=== PATIENT | female | born 1980 | race Caucasian/White ===

== ENCOUNTER 2016-08-28 15:17 | Emergency (ER) | payer SELFPAY ==
[~2016-08-28] VITALS: Ht 165.1 cm; Wt 90.7 kg
[~2016-08-28 15:17] MED LIST: MIRENA IUD
--- NOTE | 2016-08-28 15:41 | ED Lower Extremity ---
General Stated Complaint: RT ANKLE LACERATION Source: patient Exam Limitations: no limitations History of Present Illness Time seen by provider: 15:39 Initial Comments To ER with a laceration to the medial malleolus right ankle. Tetanus is up-to- date. This occurred just prior to arrival when she was carrying a glass of apple juice bottle out of [employer]. The bottle fell out of the plastic bag that it was in an shattered. Piece of glass flew up and cut her leg. Onset: just prior to arrival Severity: mild Pain/Injury Location: right ankle Modifying Factors: Worse With Movement Allergies and Home Medications Allergies Coded Allergies: No Known Allergies (Verified Allergy, Unknown, 04/14/05) Home Medications [Mirena Iud] , (Reported) Constitutional: see HPI EENTM: see HPI Respiratory: no symptoms reported Cardiovascular: no symptoms reported Genitourinary: no symptoms reported Musculoskeletal: see HPI Skin: see HPI Psychiatric/Neurological: No Symptoms Reported Past Vysvdri-Yrctmf-Ozmwsp Hx Patient Social History Recent Foreign Travel: No Contact w/Someone Who Travel: No Respiratory Hx Respiratory Disorders: Yes Reproductive System Hx Reproductive Disorders: No (MIRENA IMPLANT, HX.CYSTIC EGGS) Gastrointestinal Hx Gastrointestinal Disorders: Yes Musculoskeletal Hx Musculoskeletal Disorders: No Endocrine Hx Endocrine Disorders: No HEENT HX ENT Disorders: No Psychosocial Hx Psychiatric Problems: Yes (DEPRESSION-LOST 1YR.OLD CHILD IN AUGUST) Blood Transfusions Hx Blood Disorders: No Physical Exam Vital Signs Vital Sign - Last 12Hours 08/28/16 15:30 Temp 98.0 Pulse 78 Resp 16 B/P (MAP) 161/99 Pulse Ox 98 Capillary Refill : General Appearance: WD/WN, no apparent distress HEENT: PERRL/EOMI, normal ENT inspection Neck: non-tender, full range of motion Respiratory: no respiratory distress, no accessory muscle use Gastrointestinal: normal bowel sounds, non tender, soft Hips: bilateral hip non-tender, bilateral hip normal inspection, bilateral hip normal range of motion Legs: bilateral leg non-tender, bilateral leg normal inspection, bilateral leg normal range of motion Knees: bilateral knee non-tender, bilateral knee normal inspection, bilateral knee normal range of motion Ankles: right ankle pain, right ankle other (1.5 cm laceration to the medial malleolus of the right ankle with active bleeding that is easily controlled with ) Neurologic/Psychiatric: normal mood/affect, oriented x 3 Skin: normal color, warm/dry Laceration Repair : Wound Location: Lower Extremities Wound's Depth, Shape: sub Q Anesthesia: 1% Lidocaine Suture: Prolene Suture Size: 4-0 Number of Sutures: 3 Layer Closure?: 1 Number Deep Layer Sutures: 0 Progress Area anesthetized with 2 mL 2 percent lidocaine without epinephrine. Wound is scrubbed with chlorhexidine/saline solution and irrigated with the same. I'm able to visualize ligament structures over the medial malleolus but no laceration of these. Subcutaneous tissues/skin closed with 3 simple interrupted sutures size 4-0 Prolene Progress/Results/Core Measures Results/Orders My Orders Orders - ANAYA BECKFORD APRN Lidocaine 2% Injection 20 Ml (Xylocaine (08/28/16 15:45) Medications Given in ED Current Medications Medications Dose Ordered Sig/Renata Route Start Time Stop Time Status Last Admin Dose Admin Lidocaine HCl 3 ml ONCE ONCE INJ 08/28/16 15:45 08/28/16 15:46 DC 08/28/16 15:55 3 ML Vital Signs/I&O Vital Sign - Last 12Hours 08/28/16 15:30 Temp 98.0 Pulse 78 Resp 16 B/P (MAP) 161/99 Pulse Ox 98 Departure Impression Impression: Primary Impression: Laceration Disposition: 01 HOME, SELF-CARE Condition: Stable Departure-Patient Inst. Decision time for Depature: 15:41 Referrals: NO,LOCAL PHYSICIAN (PCP/Family) Primary Care Physician Patient Instructions: Laceration Repair With Stitches (DC) Add. Discharge Instructions: 1. You may wash this gently with soap and water starting this evening. However , do not soak this in water such as a bathtub, swimming pool or hot tub until the stitches have been removed. Return to the emergency room to have these removed in 7-10 days. Return to ER before then for any sign of infection such as redness or swelling. Keep this covered with a simple Band-Aid. ANAYA BECKFORD APRN Aug 28, 2016 15:41
[2016-08-28] MEDS ORDERED: LIDOCAINE 2% 20 ML (XYLOCAINE) VIAL INJ ONE (15:45)
[2016-08-28 16:09] VITALS: BP 160/78
--- OUTSIDE RECORDS SUMMARY | 2016-08-29 08:57 | XMS REPORT | Continuity of Care Document ---
Author Author [facility] Organization [facility] Address Unknown Phone Unavailable Care Team Providers Care Chute Man Name Role Phone Doctor, Miscellaneous PCP Unavailable Source Comments Some departments are not documenting in the electronic medical record. If you do not see the information that you expected, contact Release of Information in the Health Information Management department at [phone] for further assistance in locating additional records.[facility] Active Allergies and Adverse Reactions No Known Allergies Current Medications Prescription Sig. Disp. Refills Start End Date Status Date ALPRAZolam (XANAX) 0.5 mg Take 0.5 mg by mouth Active tablet three times daily as needed. PHENAZOPYRIDINE HCL Take by mouth. Active (PYRIDIUM PO) HYDROcodone-acetaminophen Take 1 Tab by mouth every Active (+) (VICODIN ES) 7.5-750 6 hours as needed. mg tablet IBUPROFEN (ADVIL PO) Take by mouth. Active levofloxacin (LEVAQUIN) Take 1 Tab by mouth 5 Tab 0 11/08/19 Active 750 mg tablet daily. 14 oxyCODONE-acetaminophen Take 1 Tab by mouth every 8 Tab 0 11/08/19 Active (PERCOCET; ENDOCET; 4 hours as needed for 14 ROXICET) 5-325 mg tablet Pain Max 12 tabs/day ondansetron (ZOFRAN) 4 mg Take 1 Tab by mouth every 15 Tab 0 20 Active tablet 8 hours as needed for 14 Nausea. Active Problems Not on file Social History Tobacco Use Types Packs/Day Years Used Date Current Every Day Smoker Cigarettes 0.5 Alcohol Use Drinks/Week oz/Week Comments No Last Filed Vital Signs Vital Sign Reading Time Taken Blood Pressure 127/84 11/07/2013 1:22 AM CDT Pulse 62 11/07/2013 1:22 AM CDT Temperature 36.9 C (98.4 F) 11/06/2013 9:27 PM CDT Respiratory Rate - - Height - - Weight 95.9 kg (211 lb 6.7 oz) 11/06/2013 9:27 PM CDT Body Mass Index - - Oxygen Saturation 96% 11/07/2013 1:22 AM CDT Plan of Care Health Maintenance Due Date Last Done Comments Physical (Comprehensive) 1986 Exam Pertussis Vaccine 1990 Tetanus Vaccine 02/19/1996 Cervical Cancer Screening 02/19/2000 Influenza Vaccine 11/03/2016 Results from Last 3 Months Not on file
--- OUTSIDE RECORDS SUMMARY | 2016-08-29 08:58 | XMS REPORT | Continuity of Care Document ---
Author Author [facility] Address Unknown Phone Unavailable Allergies Medications Problems Date Dx Coded Attending Type Code Diagnosis Diagnosed By 11/02/2011 MAMI DDS JACOBY L V25.01 CONTRACEPTION - ORAL CONTRACEPTION 11/02/2011 GREEN DDS JACOBY L V25.12 IUD REMOVAL 11/02/2011 GREEN DDS JACOBY L V74.5 STD SCREEN 11/02/2011 MAMI DDS JACOBY L V76.2 CERVICAL CANCER SCREENING (PAP SMEAR) 11/02/2011 V25.01 CONTRACEPTION - ORAL CONTRACEPTION 11/02/2011 V25.12 IUD REMOVAL 11/02/2011 V74.5 STD SCREEN 11/02/2011 V76.2 CERVICAL CANCER SCREENING (PAP SMEAR) 11/02/2011 V25.01 CONTRACEPTION - ORAL CONTRACEPTION 11/02/2011 V25.12 IUD REMOVAL 11/02/2011 V74.5 STD SCREEN 11/02/2011 V76.2 CERVICAL CANCER SCREENING (PAP SMEAR) 11/02/2011 MARGARITO SWANN MD V25.01 CONTRACEPTION - ORAL CONTRACEPTION 11/02/2011 MARGARITO SWANN MD V25.12 IUD REMOVAL 11/02/2011 MARGARITO SWANN MD V74.5 STD SCREEN 11/02/2011 MARGARITO SWANN MD V76.2 CERVICAL CANCER SCREENING (PAP SMEAR) 11/02/2011 MARGARITO SWANN MD V25.01 CONTRACEPTION - ORAL CONTRACEPTION 11/02/2011 MARGARITO SWANN MD V25.12 IUD REMOVAL 11/02/2011 MARGARITO SWANN MD V74.5 STD SCREEN 11/02/2011 MARGARITO SWANN MD V76.2 CERVICAL CANCER SCREENING (PAP SMEAR) 11/02/2011 MARGARITO SWANN MD V25.01 CONTRACEPTION - ORAL CONTRACEPTION 11/02/2011 MARGARITO SWANN MD V25.12 IUD REMOVAL 11/02/2011 MARGARITO SWANN MD V74.5 STD SCREEN 11/02/2011 MARGARITO SWANN MD V76.2 CERVICAL CANCER SCREENING (PAP SMEAR) 07/05/2012 008.8 GASTROENTERITIS, VIRAL 07/05/2012 477.0 ALLERGIC RHINITIS DUE TO POLLEN 07/05/2012 008.8 GASTROENTERITIS, VIRAL 07/05/2012 477.0 ALLERGIC RHINITIS DUE TO POLLEN 07/05/2012 MARGARITO SWANN MD 008.8 GASTROENTERITIS, VIRAL 07/05/2012 MARGARITO SWANN MD 477.0 ALLERGIC RHINITIS DUE TO POLLEN 07/05/2012 MARGARITO SWANN MD 008.8 GASTROENTERITIS, VIRAL 07/05/2012 MARGARITO SWANN MD 477.0 ALLERGIC RHINITIS DUE TO POLLEN 07/05/2012 MARGARITO SWANN MD 008.8 GASTROENTERITIS, VIRAL 07/05/2012 MARGARITO SWANN MD 477.0 ALLERGIC RHINITIS DUE TO POLLEN 07/08/2012 465.9 UPPER RESPIRATORY INFECTION 07/08/2012 MARGARITO SWANN MD 465.9 UPPER RESPIRATORY INFECTION 07/08/2012 MARGARITO SWANN MD 465.9 UPPER RESPIRATORY INFECTION 07/08/2012 MARGARITO SWANN MD 465.9 UPPER RESPIRATORY INFECTION 12/18/2012 MARGARITO SWANN MD 466.0 BRONCHITIS, ACUTE 12/18/2012 MARGARITO SWANN MD 466.0 BRONCHITIS, ACUTE 12/18/2012 MARGARITO SWANN MD 466.0 BRONCHITIS, ACUTE 09/30/2013 MARGARITO SWANN MD 451.9 PHLEBITIS AND THROMBOPHLEBITIS OF UNSPECIFIED SITE 09/30/2013 MARGARITO SWANN MD 591 HYDRONEPHROSIS 09/30/2013 MARGARITO SWANN MD 788.41 URINARY FREQUENCY 09/30/2013 MARGARITO SWANN MD 796.2 ELEVATED BLOOD PRESSURE READING WITHOUT DIAGNOSIS OF HYPERTENSION 09/30/2013 MARGARITO SWANN MD 451.9 PHLEBITIS AND THROMBOPHLEBITIS OF UNSPECIFIED SITE 09/30/2013 MARGARITO SWANN MD 591 HYDRONEPHROSIS 09/30/2013 MARGARITO SWANN MD 788.41 URINARY FREQUENCY 09/30/2013 MARGARITO SWANN MD 796.2 ELEVATED BLOOD PRESSURE READING WITHOUT DIAGNOSIS OF HYPERTENSION Procedures Code [place] [address] ROUTINE VENIPUNCTURE 07/08/2012 29809 CMP 07/08/2012 53255 CBC 07/08/2012 62859 CULTURE STOOL 08/2012 47151 STOOL FOR O & P 07/08/2012 80815 OXIMETRY 2012 27773 UA LONG DIP 09/30 55927 OXIMETRY 2013 Results Encounters ACCT No. Visit Date/Time Discharge Status Pt. Type Provider Facility Loc./Unit Complaint [id number] 10/02/2013 10:05:00 10/02/2013 23: 59:59 CLS Outpatient MARGARITO SWANN MD [id number] 09/30/2013 10:04:00 09/30/2013 23: 59:59 CLS Outpatient MARGARIOT SWANN MD [id number] 12/18/2012 08:50:00 12/18/2012 23: 59:59 CLS Outpatient MARGARITO SWANN MD [id number] 02/15/2012 15:46:00 02/15/2012 23: 59:59 CLS Outpatient JACOBY BOLAÑOS DDS [id number] 07/08/2012 14:54:00 Document Registration [id number] 07/05/2012 13:41:00 Document Registration
== END 2016-08-28 16:09 | disposition home or self-care (01) ==
LOC: EDUNIT# 15:17 → ER 15:22
DX: S91.011A Laceration without foreign body, right ankle, initial encounter (principal); F32.9 Major depressive disorder, single episode, unspecified; W25.XXXA Contact with sharp glass, initial encounter; Y92.59 Other trade areas as the place of occurrence of the external cause
CPT/HCPCS: 12041

== ENCOUNTER 2017-09-08 08:49 | Emergency (ER) | payer SELFPAY ==
[~2017-09-08] VITALS: Ht 165.1 cm; Wt 108.9 kg
[2017-09-08] MEDS ORDERED: LACTATED RINGERS 1,000 ML IV ONE (09:04)
--- NOTE | 2017-09-08 09:12 | ED Abdominal Pain ---
General Stated Complaint: ABD PAIN,NAUSEA,FEVER Source of Information: Patient Exam Limitations: No Limitations History of Present Illness Date Seen by Provider: Sep 08, 2017 Time Seen by Provider: 08:59 Initial Comments Patient presents to the ER by private conveyance with a chief complaint she's having some left lower quadrant sharp abdominal pain started about 3 or 4 days ago. She's having no dysuria or discharge. 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 Says this pain is different. Yesterday she thought that it might of been a urinary tract infection although doesn't feel like her typical urinary tract infection so she took a tablet of her azithromycin that she had left over at home. She says it did not help her pain. She's having some nausea but no vomiting. She's had a couple small bowel movements. No colonoscopy or history of diverticulosis. She' s not having any blood in the stool. Allergies and Home Medications Allergies Coded Allergies: No Known Allergies (Verified Allergy, Unknown, 04/14/05) Patient Home Medication List Home Medication List Reviewed: Yes Review of Systems Constitutional: No chills, No diaphoresis, No fever EENTM: No Blurred Vision, No Double Vision Respiratory: Denies Cough, Denies Shortness of Air Cardiovascular: Denies Chest Pain, Denies Irregular Heart Rate Gastrointestinal: Denies Abdomen Distended; Abdominal Pain; Denies Blood Streaked Stools, Denies Constipated, Denies Diarrhea; Nausea Genitourinary: Denies Burning, Denies Discharge, Denies Drainage Musculoskeletal: No back pain, No joint pain Skin: No pruritus, No rash Psychiatric/Neurological: Denies Headache, Denies Numbness, Denies Paresthesia Past Misjcnq-Qysjrt-Eacebv Hx Patient Social History Alcohol Use: Occasionally Uses Recreational Drug Use: No Smoking Status: Current Everyday Smoker Type Used: Cigarettes (0.25 ppd) Recent Foreign Travel: No Contact w/Someone Who Travel: No Recent Hopitalizations: Yes (CHILDBIRTH,CYSTIC OVARY,PREECLAMPSIA) Immunizations Up To Date Tetanus Booster (TDap): Less than 5yrs Past Medical History Surgeries: Yes (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) Respiratory: Yes Reproductive Disorders: No (MIRENA IMPLANT, HX.CYSTIC EGGS) Gastrointestinal: Yes Musculoskeletal: No Endocrine: No Psychosocial: Yes (DEPRESSION-LOST 1YR.OLD CHILD IN AUGUST) Blood Disorders: No Physical Exam Vital Signs Vital Signs - First Documented 09/08/17 08:57 Temp 97.1 Pulse 97 Resp 18 B/P (MAP) 142/82 (102) Capillary Refill : Height/Weight/BMI Height: 5', 5.00" Weight: 200lbs oz, 90.374486cn Method:Stated ,BMI General Appearance: WD/WN, mild distress HEENT: PERRL/EOMI, pharynx normal Neck: non-tender, full range of motion, supple, normal inspection Respiratory: chest non-tender, lungs clear, normal breath sounds, no respiratory distress, no accessory muscle use Cardiovascular: normal peripheral pulses, regular rate, rhythm, no edema Peripheral Pulses: 2+ Radial Pulses (R), 2+ Radial Pulses (L) Gastrointestinal: soft, guarding, rebound, tenderness (LLQ); No hernia, No mass Extremities: normal range of motion, non-tender, no calf tenderness, normal capillary refill Neurologic/Psychiatric: alert, normal mood/affect, oriented x 3 Skin: normal color, warm/dry Procedures/Interventions Suture Size: 4-0 Progress/Results/Core Measures Results/Orders Lab Results Laboratory Tests Test 09/08/17 09:10 Range/Units White Blood Count 12.0 H 4.3-11.0 10^3/uL Red Blood Count 4.59 4.35-5.85 10^6/uL Hemoglobin 14.5 11.5-16.0 G/DL Hematocrit 42 35-52 % Mean Corpuscular Volume 90 80-99 FL Mean Corpuscular Hemoglobin 32 25-34 PG Mean Corpuscular Hemoglobin Concent 35 32-36 G/DL Red Cell Distribution Width 13.4 10.0-14.5 % Platelet Count 249 130-400 10^3/uL Mean Platelet Volume 9.5 7.4-10.4 FL Neutrophils (%) (Auto) 79 H 42-75 % Lymphocytes (%) (Auto) 10 L 12-44 % Monocytes (%) (Auto) 8 0-12 % Eosinophils (%) (Auto) 2 0-10 % Basophils (%) (Auto) 0 0-10 % Neutrophils # (Auto) 9.5 H 1.8-7.8 X 10^3 Lymphocytes # (Auto) 1.2 1.0-4.0 X 10^3 Monocytes # (Auto) 1.0 0.0-1.0 X 10^3 Eosinophils # (Auto) 0.3 0.0-0.3 10^3/uL Basophils # (Auto) 0.0 0.0-0.1 10^3/uL Urine Color YELLOW Urine Clarity VERY CLOUDY H Urine pH 8 5-9 Urine Specific Webster 1.010 L 1.016-1.022 Urine Protein 2+ H NEGATIVE Urine Glucose (UA) NEGATIVE NEGATIVE Urine Ketones NEGATIVE NEGATIVE Urine Nitrite NEGATIVE NEGATIVE Urine Bilirubin NEGATIVE NEGATIVE Urine Urobilinogen 1 NORMAL MG/DL Urine Leukocyte Esterase 3+ H NEGATIVE Urine RBC (Auto) 1+ H NEGATIVE Urine RBC 2-5 H /HPF Urine WBC 50-100 H /HPF Urine Squamous Epithelial Cells 2-5 /HPF Urine Crystals NONE /LPF Urine Bacteria TRACE /HPF Urine Casts NONE /LPF Urine Mucus NEGATIVE /LPF Urine Culture Indicated YES Sodium Level 139 135-145 MMOL/L Potassium Level 4.0 3.6-5.0 MMOL/L Chloride Level 105 98-107 MMOL/L Carbon Dioxide Level 24 21-32 MMOL/L Anion Gap 10 5-14 MMOL/L Blood Urea Nitrogen 7 7-18 MG/DL Creatinine 0.77 0.60-1.30 MG/DL Estimat Glomerular Filtration Rate > 60 BUN/Creatinine Ratio 9 Glucose Level 119 H 70-105 MG/DL Calcium Level 9.2 8.5-10.1 MG/DL Total Bilirubin 1.6 H 0.1-1.0 MG/DL Aspartate Amino Transf (AST/SGOT) 19 5-34 U/L Alanine Aminotransferase (ALT/SGPT) 14 0-55 U/L Alkaline Phosphatase 82 40-136 U/L Total Protein 6.9 6.4-8.2 GM/DL Albumin 4.0 3.2-4.5 GM/DL Serum Test, Qualitative NEGATIVE NEGATIVE My Orders Orders - CHRIS ZALDIVAR Cbc With Automated Diff (09/08/17 09:04) Comprehensive Metabolic Panel (09/08/17 09:04) Hcg,Qualitative Serum (09/08/17 09:04) Ua Culture If Indicated (09/08/17 09:04) Ct Abdomen/Pelvis W (09/08/17 09:04) Saline Lock/Iv-Start (09/08/17 09:04) Lactated Ringers (Lr 1000 Ml Iv Solution (09/08/17 09:04) Ketorolac Injection (Toradol Injection) (09/08/17 09:15) Ondansetron Injection (Zofran Injectio (09/08/17 09:15) Iohexol Injection (Omnipaque 350 Mg/Ml 1 (09/08/17 09:15) Sodium Chloride Flush (Catheter Flush Sy (09/08/17 09:15) Ns (Ivpb) (Sodium Chloride 0.9%) (09/08/17 09:15) Pharmacy Communication (Pharmacy Communi (09/08/17 09:12) Urine Culture (09/08/17 09:10) Ceftriaxone Injection (Rocephin Injectio (09/08/17 11:00) Medications Given in ED Current Medications Medications Dose Ordered Sig/Renata Route Start Time Stop Time Status Last Admin Dose Admin Iohexol 100 ml ONCE ONCE IV 09/08/17 09:15 09/08/17 09:16 DC 09/08/17 09:48 100 ML Ketorolac Tromethamine 15 mg ONCE ONCE IVP 09/08/17 09:15 09/08/17 09:16 DC 09/08/17 09:17 15 MG Lactated Ringer's 1,000 ml @ 0 mls/hr Q0M ONCE IV 09/08/17 09:04 09/08/17 09:09 DC 09/08/17 09:17 1,000 MLS/HR Ondansetron HCl 4 mg ONCE ONCE IVP 09/08/17 09:15 09/08/17 09:16 DC 09/08/17 09:19 4 MG Sodium Chloride 10 ml NEEDED PRN IV 09/08/17 09:15 09/08/17 09:48 10 ML Sodium Chloride 250 ml ONCE ONCE IV 09/08/17 09:15 09/08/17 09:16 DC 09/08/17 09:48 80 ML Vital Signs/I&O 09/08/17 08:57 Temp 97.1 Pulse 97 Resp 18 B/P (MAP) 142/82 (102) Progress Progress Note #1: Time: 09:11 Progress Note Rheumatoid get a CT scan of the abdomen pelvis with contrast and basic labs and urinalysis. She's having quite a bit of tenderness in her left lower quadrant abdomen so we'll give her some ketorolac to start as well as Zofran and a liter of LR. Progress Note #2: Time: 10:47 Progress Note A long discussion with the patient and based on history and findings and urinalysis this is most likely pyelonephritis with local inflammation seen in the colon and a background history of diverticulosis without diverticulitis. We' ll going to treat her with Rocephin outpatient after offering her a observation stay for antibiotics and fluids. She says her pain is much improved on the Toradol but is starting to come back distal little. She is not having any nausea presently. She would like to go outpatient for her therapy. We'll put her on Keflex as well as some pain and nausea medicines. She does not have a primary care doctor but she says she's going to follow up at [facility] so we'll send her records there. Given her history of congenital portion of the ureter as well as a contrasted CT unable to rule out a stone it would be hceatham to follow-up with urology. She has a urologist that she saw in the past in [place] or she can follow-up locally. We discussed the incidental Earnestine in her lungs and recommended CT reimaging in the next 3-6 months set up by primary care and she says she will get this done. We had a 5-10 minute conversation on smoking cessation and made recommendations. Diagnostic Imaging Diagonstic Imaging: CT Plain Films/CT/US/NM/MRI: abdomen, pelvis Comments VIA [facility], [facility] [place], [place] NAME: ALTON SWEENEY [facility] REC#: [id number] PT STATUS: REG ER : 1980 PHYSICIAN: CHRIS ZALDIVAR MD ADMIT DATE: 09/08/17/ER Draft Date of Exam:09/08/17 CT ABDOMEN/PELVIS W PROCEDURE: CT abdomen and pelvis with contrast. TECHNIQUE: Multiple contiguous axial images were obtained through the abdomen and pelvis after administration of intravenous contrast. INDICATION: Left lower quadrant pain for 4 days, worse in the last 24 hours. EXAMINATION is a CT abdomen and pelvis with contrast 09/08/2017 COMPARISON: None. FINDINGS: The cortex of the left kidney is somewhat thinned compared to the right, likely due to a chronic process. There is left-sided hydronephrosis which appears severe. The left renal pelvis is prominent. The proximal left ureter (per history) has undergone prior surgery. Much of its course is difficult to visualize. There is marked fat stranding and likely fluid along the expected course of the ureter. No definite stones identified although a tiny stone could be missed given the presence of IV contrast. There is a small amount of free fluid in the left flank extending downwards towards the pelvis and surrounding the course of the distal psoas muscle. There is no definite nephrolithiasis on the left. However, there are small hypodensities less than a centimeter in size, too small to characterize. The right kidney is unremarkable, no lesions identified. No definite stones and no hydronephrosis. No ureteral stones noted along the course of the right ureter. There is some fat stranding about the descending colon with adjacent diverticular disease noted. Although some of this could be due to a focal acute diverticulitis, it may represent surrounding edema and fat stranding secondary to an abnormality in the left kidney. There is some wall thickening along the distal descending and proximal sigmoid colon which would suggest the primary etiology is acute diverticulitis. Please correlate with history and symptoms. The liver demonstrates diffuse fat infiltration. The spleen is unremarkable. The adrenal glands and pancreas are normal in appearance. The gallbladder is somewhat contracted, otherwise unremarkable. Adrenal glands, unremarkable. There is no lymphadenopathy. No free air. No abscess formation appreciated. The appendix is normal. Osseous structures demonstrate no acute abnormality. There is a peripherally enhancing lesion in the left adnexa most likely an involuting corpus luteal cyst. This measures approximately 16 mm in greatest dimension. Osseous structures within normal limits. Within the visualized lung bases, several nodules are noted, many of which are incompletely imaged. There is a 6 mm nodule in the periphery of the right lower lobe, image #1 (incompletely Imaged). A small nodule, subpleural in nature, in the left lower lobe is also seen and measures approximately 2 mm in size. There is an airspace opacity in the posterior right lung base which is approximately 12 mm in size. Multiple tiny nodules scattered throughout the left lower lobe. These findings are of uncertain etiology. Within the visualized left inferior breast there is a focal density which is likely fibroglandular tissue, less likely a lesion, but incompletely imaged. Clinical correlation recommended. IMPRESSION: 1. Fat stranding along the left flank and surrounding focal area of wall thickening and diverticular disease suspicious for acute diverticulitis. Adjacent free fluid noted but no free air or abscess at this time. 2. Fat stranding surrounding the expected course of the left ureter. This is very likely due to the suspected diverticulitis, less likely due to a recently passed stone or an acute process involving the left renal collecting system such as pyelonephritis. However, correlation clinically with symptoms and urinalysis may be warranted. No ureteral stones appreciated. 3. Involuting corpus luteal cyst is suspected in the left adnexal region. 4. Nodules within the visualized lungs, the largest of which is seen posterior at the right lung base and may contain a tiny central cavitation. Short-term interval followup to assure resolution and evaluate the remaining lungs would be recommended and to exclude a metastatic process. 5. Other incidental findings, as described above. 6. Hydronephrosis and cortical thinning of the left kidney appears chronic. Dictated on workstation # [id number] Dict: 09/08/17 [id number] Trans: 09/08/17 1019 [facility] [id number] Interpreted by: EDISON HILL MD Electronically signed by: Reviewed: Reviewed by Me Departure Impression Primary Impression: Pyelonephritis Additional Impressions: Tobacco dependence Pulmonary nodule seen on imaging study Disposition: 01 HOME, SELF-CARE Condition: Improved Departure-Patient Inst. Decision time for Depature: 10:45 Referrals: [facility] (PCP) Primary Care Physician FLAKITO ALEX MD Patient Instructions: Urinary Tract Infection, Adult (DC) Add. Discharge Instructions: Drink lots of fluids. Caffeine is okay. Take the antibiotics starting tomorrow one capsule twice a day for the next 10 days. You can use the Zofran, nausea medicine every 6 hours as needed and you can use the hydrocodone one tablet every 6 hours if ibuprofen 800 mg every 8 hours is not working. Call urology and get an appointment to follow up in the next week. Establish care with a primary care provider to help you manage your pyelonephritis as well as your incidentally noticed lung nodules which will require CT reimaging in 4-6 months. If you're unable to tolerate the pills or you're not seeing improvement in the first 3-4 days then you should follow-up sooner. Scripts Ondansetron (Ondansetron Odt) 4 Mg Tab.rapdis 4 MG PO Q6H PRN for NAUSEA/VOMITING, #8 TAB 0 Refills Prov: CHRIS ZALDIVAR 09/08/17 Hydrocodone Bit/Acetaminophen (Hydrocodone/Acetaminophen 5/325mg Tablet) 1 Tab Tab 1-2 EACH PO Q6H PRN for BREAKTHROUGH PAIN, #15 TAB 0 Refills Prov: CHRIS ZALDIVAR 09/08/17 Cephalexin (Keflex) 500 Mg Capsule 500 MG PO BID for 10 Days, #20 CAP 0 Refills Prov: CHRIS ZALDIVAR 09/08/17 Copy Copies To 1: PREMA CAR DO Copies To 2: FLAKITO ALEX MD, TITUS J Sep 08, 2017 09:12
[2017-09-08] MEDS ORDERED: KETOROLAC 30 MG/ML VIAL IVP ONE (09:15)
[2017-09-08] MEDS ORDERED: NS 250 ML (IVPB) BAG IV ONE (09:15)
[2017-09-08] MEDS ORDERED: CATHETER FLUSH 10 ML SYR IV PRN (09:15)
[2017-09-08] MEDS ORDERED: IOHEXOL 350 MG/ML 100 ML (OMNIPAQUE 350) VIAL IV ONE (09:15)
[2017-09-08] MEDS ORDERED: ONDANSETRON 4 MG/2 ML (SDV) Z0FRAN IVP ONE (09:15)
[2017-09-08 09:20] LABS: BASOPHILS % (AUTO) 0 % (0-10); EOSINOPHILS # (AUTO) 0.3 10^3/uL (0.0-0.3); EOSINOPHILS % (AUTO) 2 % (0-10); HEMATOCRIT 42 % (35-52); HEMOGLOBIN 14.5 G/DL (11.5-16.0); LYMPHOCYTES # (AUTO) 1.2 X 10^3 (1.0-4.0); LYMPHOCYTES % (AUTO) 10 % (12-44); MEAN CORPUSCULAR HEMOGLOBIN 32 PG (25-34); MEAN CORPUSCULAR HGB CONC 35 G/DL (32-36); MEAN CORPUSCULAR VOLUME 90 FL (80-99); MEAN PLATELET VOLUME 9.5 FL (7.4-10.4); MONOCYTES % (AUTO) 8 % (0-12); NEUTROPHILS # (AUTO) 9.5 X 10^3 (1.8-7.8); NEUTROPHILS % (AUTO) 79 % (42-75); PLATELET COUNT 249 10^3/uL (130-400); RED BLOOD COUNT 4.59 10^6/uL (4.35-5.85); RED CELL DISTRIBUTION WIDTH 13.4 % (10.0-14.5)
[2017-09-08 09:22] LABS: BILIRUBIN,URINE NEGATIVE (NEGATIVE); CLARITY,URINE VERY CLOUDY; COLOR,URINE YELLOW; GLUCOSE, URINE (UA) NEGATIVE (NEGATIVE); KETONES,URINE NEGATIVE (NEGATIVE); LEUKOCYTE ESTERASE ,URINE 3+ (NEGATIVE); NITRITE,URINE NEGATIVE (NEGATIVE); PH,URINE 8 (5-9); PROTEIN,URINE 2+ (NEGATIVE); UROBILINOGEN,URINE 1 MG/DL (NORMAL)
[2017-09-08 09:32] LABS: BACTERIA,URINE TRACE /HPF; WBC,URINE 50-100 /HPF
[2017-09-08 09:39] LABS: ALANINE AMINOTRANSFERASE 14 U/L (0-55); ALKALINE PHOSPHATASE 82 U/L (40-136); BILIRUBIN,TOTAL 1.6 MG/DL (0.1-1.0); BUN/CREATININE RATIO 9; CALCIUM 9.2 MG/DL (8.5-10.1); CARBON DIOXIDE 24 MMOL/L (21-32); CHLORIDE 105 MMOL/L (98-107); CREATININE SERUM 0.77 MG/DL (0.60-1.30); GFR ESTIMATED > 60; GLUCOSE 119 MG/DL (70-105); SODIUM 139 MMOL/L (135-145); TOTAL PROTEIN 6.9 GM/DL (6.4-8.2)
--- NOTE | 2017-09-08 10:19 | Diagnostic Imaging Report ---
PROCEDURE: CT abdomen and pelvis with contrast. TECHNIQUE: Multiple contiguous axial images were obtained through the abdomen and pelvis after administration of intravenous contrast. INDICATION: Left lower quadrant pain for 4 days, worse in the last 24 hours. EXAMINATION is a CT abdomen and pelvis with contrast 09/08/2017 COMPARISON: None. FINDINGS: The cortex of the left kidney is somewhat thinned compared to the right, likely due to a chronic process. There is left-sided hydronephrosis which appears severe. The left renal pelvis is prominent. The proximal left ureter (per history) has undergone prior surgery. Much of its course is difficult to visualize. There is marked fat stranding and likely fluid along the expected course of the ureter. No definite stones identified although a tiny stone could be missed given the presence of IV contrast. There is a small amount of free fluid in the left flank extending downwards towards the pelvis and surrounding the course of the distal psoas muscle. There is no definite nephrolithiasis on the left. However, there are small hypodensities less than a centimeter in size, too small to characterize. The right kidney is unremarkable, no lesions identified. No definite stones and no hydronephrosis. No ureteral stones noted along the course of the right ureter. There is some fat stranding about the descending colon with adjacent diverticular disease noted. Although some of this could be due to a focal acute diverticulitis, it may represent surrounding edema and fat stranding secondary to an abnormality in the left kidney. There is some wall thickening along the distal descending and proximal sigmoid colon which would suggest the primary etiology is acute diverticulitis. Please correlate with history and symptoms. The liver demonstrates diffuse fat infiltration. The spleen is unremarkable. The adrenal glands and pancreas are normal in appearance. The gallbladder is somewhat contracted, otherwise unremarkable. Adrenal glands, unremarkable. There is no lymphadenopathy. No free air. No abscess formation appreciated. The appendix is normal. Osseous structures demonstrate no acute abnormality. There is a peripherally enhancing lesion in the left adnexa most likely an involuting corpus luteal cyst. This measures approximately 16 mm in greatest dimension. Osseous structures within normal limits. Within the visualized lung bases, several nodules are noted, many of which are incompletely imaged. There is a 6 mm nodule in the periphery of the right lower lobe, image #1 (incompletely Imaged). A small nodule, subpleural in nature, in the left lower lobe is also seen and measures approximately 2 mm in size. There is an airspace opacity in the posterior right lung base which is approximately 12 mm in size. Multiple tiny nodules scattered throughout the left lower lobe. These findings are of uncertain etiology. Within the visualized left inferior breast there is a focal density which is likely fibroglandular tissue, less likely a lesion, but incompletely imaged. Clinical correlation recommended. IMPRESSION: 1. Fat stranding along the left flank and surrounding focal area of wall thickening and diverticular disease suspicious for acute diverticulitis. Adjacent free fluid noted but no free air or abscess at this time. 2. Fat stranding surrounding the expected course of the left ureter. This is very likely due to the suspected diverticulitis, less likely due to a recently passed stone or an acute process involving the left renal collecting system such as pyelonephritis. However, correlation clinically with symptoms and urinalysis may be warranted. No ureteral stones appreciated. 3. Involuting corpus luteal cyst is suspected in the left adnexal region. 4. Nodules within the visualized lungs, the largest of which is seen posterior at the right lung base and may contain a tiny central cavitation. Short-term interval followup to assure resolution and evaluate the remaining lungs would be recommended and to exclude a metastatic process. 5. Other incidental findings, as described above. 6. Hydronephrosis and cortical thinning of the left kidney appears chronic. Dictated by: Dictated on workstation # [id number]
[2017-09-08] MEDS ORDERED: ACHD5005 PO (10:55)
[2017-09-08] MEDS ORDERED: CEPH-507 PO (10:55)
[2017-09-08] MEDS ORDERED: ONDA4TAB11 PO (10:55)
[2017-09-08] MEDS ORDERED: cefTRIAXone INJECTION 1,000 MG in NS (IVPB) 50 ML IV ONE (11:00)
[2017-09-08] MEDS ORDERED: HYDROcodone/APAP 5 MG/325 MG (LORTAB) TAB PO ONE (11:00)
[2017-09-08 11:02] VITALS: BP 140/96
== END 2017-09-08 11:38 | disposition home or self-care (01) ==
LOC: ER 08:49 → EDUNIT# 08:49 → ER 11:38
DX: N12 Tubulo-interstitial nephritis, not specified as acute or chronic (principal); R91.8 Other nonspecific abnormal finding of lung field; F32.9 Major depressive disorder, single episode, unspecified; F17.210 Nicotine dependence, cigarettes, uncomplicated; Z87.448 Personal history of other diseases of urinary system; Z97.5 Presence of (intrauterine) contraceptive device
CPT/HCPCS: 36415; 74177; 80053; 81000; 84703; 85025; 87088; 96374; 96375